=== PATIENT | male | born 1995 | race American Indian/Alaskan Native ===

== ENCOUNTER 2017-09-07 12:49 | Emergency (ER) | payer SELFPAY ==
[2017-09-07 13:18] VITALS: BP 119/77
--- NOTE | 2017-09-07 15:54 | Emergency Department Report ---
ED General Adult HPI - General Chief complaint: Extremity Injury, Upper Stated complaint: BUMP ON R THUMB Time Seen by Provider: 09/07/17 15:25 Source: patient Mode of arrival: Ambulatory Limitations: No Limitations - History of Present Illness Initial comments: pt presents for common wart to right thumb x 2 weeks now fever chills no drainage mild pain and erythema x 1 week , there is no weakness no numbness no decreased rom, Onset/Timin -: week(s) Location: upper extremity Radiation: non-radiation Severity scale (0 -10): 4 Consistency: intermittent Worsens with: none Associated Symptoms: denies: confusion, chest pain, cough, diaphoresis, fever/ chills, headaches, loss of appetite, malaise, nausea/vomiting, rash, seizure, shortness of breath, syncope, weakness Treatments Prior to Arrival: none - Related Data Previous Rx's Medication Instructions Recorded Last Taken Type LORazepam [Ativan] 1 mg PO BID PRN #30 tab 09/01/13 Unknown Rx Salicylic Acid [Salicylic Acid ER] 1 drop TP BID #1 bottle 09/07/17 Unknown Rx Allergies Allergy/AdvReac Type Severity Reaction Status Date / Time benzoyl peroxide Allergy Swelling Verified 09/01/13 20:44 ED Review of Systems ROS: Stated complaint: BUMP ON R THUMB Other details as noted in HPI Constitutional: denies: chills, fever Eyes: denies: eye pain, eye discharge, vision change ENT: denies: ear pain, throat pain Respiratory: denies: cough, shortness of breath, wheezing Cardiovascular: denies: chest pain, palpitations Endocrine: no symptoms reported Gastrointestinal: denies: abdominal pain, nausea, diarrhea Genitourinary: denies: urgency, dysuria Musculoskeletal: as per HPI Skin: other (wart right posterior thumb ) Neurological: denies: headache, weakness, paresthesias Psychiatric: denies: anxiety, depression Hematological/Lymphatic: denies: easy bleeding, easy bruising ED Past Medical Hx - Past Medical History Previous Medical History?: No - Surgical History Past Surgical History?: No - Social History Smoking Status: Never Smoker Substance Use Type: Alcohol - Medications Home Medications: Home Medications Medication Instructions Recorded Confirmed Last Taken Type LORazepam [Ativan] 1 mg PO BID PRN #30 tab 09/01/13 Unknown Rx Salicylic Acid [Salicylic Acid ER] 1 drop TP BID #1 bottle 09/07/17 Unknown Rx ED Physical Exam - General Limitations: No Limitations General appearance: alert, in no apparent distress - Head Head exam: Present: atraumatic, normocephalic - Eye Eye exam: Present: normal appearance - ENT ENT exam: Present: mucous membranes moist - Neck Neck exam: Present: normal inspection - Respiratory Respiratory exam: Present: normal lung sounds bilaterally. Absent: respiratory distress - Cardiovascular Cardiovascular Exam: Present: regular rate, normal rhythm. Absent: systolic murmur, diastolic murmur, rubs, gallop - GI/Abdominal GI/Abdominal exam: Present: soft, normal bowel sounds - Rectal Rectal exam: Present: deferred - Extremities Exam Extremities exam: Present: normal inspection, full ROM, normal capillary refill. Absent: tenderness, pedal edema, joint swelling, calf tenderness - Expanded Upper Extremity Exam Right Hand Wrist exam: Present: full ROM, tenderness (wart base or righ thumb less than 1 cm raised rough no fluctuant ), swelling. Absent: abrasion, laceration, ecchymosis, deformity, crepidus, dislocation, erythema, amputation, nail avulsion, subungual hematoma, other (wart ) Neuro motor exam: Present: wrist extension intact, thumb opposition intact, thumb IP flexion intact, thumb adduction intact, fingers 2-5 abduction intact Neurosensory exam: Present: 2-point discrimination, radial nerve intact, ulnar nerve intact, median nerve intact Vascular: Present: normal capillary refill, radial pulse, brachial pulse, ulnar pulse. Absent: vascular compromise, pulse deficit radial art, pulse deficit ulnar art, pulse deficit brachial art - Back Exam Back exam: Present: normal inspection - Neurological Exam Neurological exam: Present: alert, oriented X3 - Psychiatric Psychiatric exam: Present: normal affect, normal mood - Skin Skin exam: Present: warm, dry, intact, normal color. Absent: rash ED Course Vital Signs 09/07/17 13:15 Temperature 98.6 F Pulse Rate 75 Respiratory 18 Rate Blood Pressure 119/77 O2 Sat by Pulse 97 Oximetry - I & D Right Dorsal Type of Procedure: Simple Site: right dorsal hand thumb common wart Blade Size: 18 needle I & D Procedure: betadine prep Progress: site cleaned with betadine solution, anesthesia with 1% lidocaine plain. attempt need aspiration no output, sterile dressing applied, pt given wound care instructions pt verbalized agreement and understanding of same pt verbalized agreement and understanding of same. 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 dressing intact no symptoms of infection. Critical care attestation.: If time is entered above; I have spent that time in minutes in the direct care of this critically ill patient, excluding procedure time. ED Disposition Clinical Impression: Common wart Disposition: DC-01 TO HOME OR SELFCARE Is pt being admited?: No Does the pt Need Aspirin: No Condition: Good Instructions: Common Wart (ED), Salicylic Acid (On the skin) Prescriptions: Salicylic Acid [Salicylic Acid ER] 1 drop TP BID #1 bottle Referrals: PRIMARY CARE, [Primary Care Provider] - 3-5 Days Forms: Work/School Release Form(ED) Time of Disposition: 16:14
== END 2017-09-07 16:28 | disposition home or self-care (01) ==
LOC: ED 12:49
DX: B07.8 Other viral warts (principal); Z88.8 Allergy status to other drugs, medicaments and biological substances
CPT/HCPCS: 99282